=== PATIENT | female | born 1970 | race Caucasian/White ===

== ENCOUNTER 2018-01-23 12:13 | Emergency (ER) | payer BC, OTHER ==
[~2018-01-23] VITALS: Ht 172.7 cm; Wt 79.4 kg
[~2018-01-23 12:13] MED LIST: CIPROFLOXACIN500 M1 PO; NORCO 5-325 TA1 EACH PO
[2018-01-23 12:27] LABS: URINE BILIRUBIN NEGATIVE (Negative); URINE BLOOD NEGATIVE (Negative); URINE CLARITY CLEAR; URINE COLOR YELLOW; URINE GLUCOSE-RANDOM* NEGATIVE (Negative); URINE KETONES NEGATIVE (Negative); URINE LEUKOCYTES-REFLEX NEGATIVE (Negative); URINE NITRITE-REFLEX NEGATIVE (Negative); URINE PROTEIN (DIPSTICK) NEGATIVE (Negative); URINE SPECIFIC GRAVITY 1.025 (1.005-1.035); URINE UROBILINOGEN 0.2 E.U./dl (0.2-1.0)
[2018-01-23] MEDS ORDERED: GLUCOPHAGE XR750 MG PO (12:38)
[2018-01-23 12:42] LABS: ABSOLUTE NEUTROPHILS 3.3 thou/uL (1.4-8.2); BASOPHILS 0.7 % (0.0-2.0); EOSINOPHILS 1.5 % (0.0-3.0); HEMATOCRIT 41.9 % (37.0-47.0); HEMOGLOBIN 14.5 gm/dL (12.0-15.0); LYMPHOCYTES 27.4 % (24.0-44.0); MCH 29.5 pg (26.0-34.0); MCHC 34.6 g/dL (28.0-37.0); MCV 85.3 fL (80.0-100.0); MONOCYTES 4.9 % (1.0-8.0); PLATELET COUNT 174 thou/uL (150-400); POLYS 65.5 % (36.0-66.0); RBC 4.91 mil/uL (4.20-5.00); RDW 14.8 % (10.5-14.5)
[2018-01-23 12:51] LABS: CALCIUM 9.4 mg/dL (8.5-10.1); CREATININE 0.9 mg/dL (0.6-1.0); POTASSIUM 4.1 mmol/L (3.5-5.1)
[2018-01-23 12:56] LABS: ALBUMIN 4.3 g/dL (3.4-5.0); TOTAL BILIRUBIN 0.4 mg/dL (<0.1-1.0); TOTAL PROTEIN 9.3 g/dL (6.4-8.2)
[2018-01-23] MEDS ORDERED: NAPROSYN500 MG PO (14:14)
[2018-01-23 14:25] VITALS: BP 112/70
[2018-01-25 15:09] LABS: NEISSERIA GONORRHEA-PCR Negative (Negative)
== END 2018-01-23 14:31 | disposition home or self-care (01) ==
LOC: ER 12:13
PROVIDERS: Physician Assistant
DX: N83.201 Unspecified ovarian cyst, right side (principal); N83.202 Unspecified ovarian cyst, left side; K59.00 Constipation, unspecified; E11.9 Type 2 diabetes mellitus without complications

== ENCOUNTER 2019-07-03 09:15 | Emergency (ER) | payer BC ==
[~2019-07-03] VITALS: Ht 172.7 cm; Wt 81.7 kg
[~2019-07-03 09:15] MED LIST changes: +GLUCOPHAGE XR750 MG PO; +NAPROSYN500 MG PO
[2019-07-03 09:16] VITALS: BP 140/89
[2019-07-03] MEDS ORDERED: OMEPRAZOLE 20 M20 M1 PO (09:18)
[2019-07-03 09:59] LABS: URINE BILIRUBIN NEGATIVE (Negative); URINE BLOOD 3+ (Negative); URINE CLARITY CLOUDY; URINE COLOR YELLOW; URINE GLUCOSE-RANDOM* NEGATIVE (Negative); URINE KETONES NEGATIVE (Negative); URINE PROTEIN (DIPSTICK) NEGATIVE (Negative); URINE UROBILINOGEN 0.2 E.U./dl (0.2-1.0)
[2019-07-03 10:01] LABS: URINE LEUKOCYTES-REFLEX 1+ (Negative); URINE NITRITE-REFLEX POSITIVE (Negative)
[2019-07-03 10:09] LABS: BACTERIA-REFLEX >30 Many /HPF (None Seen); CASTS None Seen /LPF (None Seen); CRYSTALS None Seen /LPF (None Seen); SQUAMOUS 0-3 Few /LPF (0-3); URINE RBC 3-10 Few /HPF (0-2)
[2019-07-03] MEDS ORDERED: NORFLEX100 MG PO (11:00)
[2019-07-03] MEDS ORDERED: MEDROLDOSEPACK PO (11:00)
[2019-07-03] MEDS ORDERED: KEFLEX500 M1 PO (11:00)
[2019-07-03] MEDS ORDERED: DIFLUCAN150 MG PO (11:00)
[2019-07-03] MEDS ORDERED: ULTRAM 50MG TAB50 MG PO (11:00)
== END 2019-07-03 11:20 | disposition home or self-care (01) ==
LOC: ER 09:15
PROVIDERS: Emergency Medicine
DX: N39.0 Urinary tract infection, site not specified (principal); M54.41 Lumbago with sciatica, right side; E11.9 Type 2 diabetes mellitus without complications; Z79.899 Other long term (current) drug therapy